=== PATIENT | male | born 1960 | race African-American/Black ===

== ENCOUNTER 2016-09-07 23:47 | Emergency (ER) | payer MEDICAID, OTHER ==
[~2016-09-07] VITALS: Ht 175.3 cm; Wt 78.9 kg
[~2016-09-07 23:47] MED LIST: IBUPROFEN600 MG ORAL; ROBAXIN-750750 MG PO
[2016-09-08] MEDS ORDERED: HYDROCODON-ACE1 EA15 ORAL (00:24)
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
[2016-09-08 00:30] VITALS: BP 159/99
[2016-09-08] MEDS ORDERED: Norco 5mg/325mg tab ORAL ONE (00:30)
[2016-09-09] MEDS ORDERED: ROBAXIN-750750 MG PO (13:55)
[2016-09-09] MEDS ORDERED: IBUPROFEN600 MG ORAL (13:55)
== END 2016-09-08 00:31 | disposition home or self-care (01) ==
LOC: EMR 09-08 00:11
DX: S09.8XXA Other specified injuries of head, initial encounter (principal); V03.99XA Pedestrian with other conveyance injured in collision with car, pick-up truck or van, unspecified whether traffic or nontraffic accident, initial encounter; Y92.414 Local residential or business street as the place of occurrence of the external cause; M54.9 Dorsalgia, unspecified
CPT/HCPCS: 99283

== ENCOUNTER 2016-09-09 12:08 | Emergency (ER) | payer OTHER ==
[~2016-09-09] VITALS: Ht 175.3 cm; Wt 79.8 kg
[~2016-09-09 12:08] MED LIST changes: +HYDROCODON-ACE1 EA15 ORAL
[2016-09-09] MEDS ORDERED: Ketorolac 30mg Inj IM ONE (12:30)
[2016-09-09] MEDS ORDERED: Methocarbamol 750mg tab ORAL ONE (12:30)
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
--- NOTE | 2016-09-09 13:03 | Diagnostic Imaging Report ---
Indication: Headache Technique: Contiguous 5 mm thick transaxial imaging of the head obtained in a Siemens Sensation [address] scanner. Soft tissue and bone windows generated. Total Dose length Product (DLP): [address] Dose Index Volume (CTDIvol): 70.38 mGy Comparison: none Findings: Mild, nonspecific, white matter hypoattenuation is noted throughout the brain consistent with chronic small vessel disease. There is no midline shift, edema, acute hemorrhage, mass effect, or abnormal extra-axial fluid collections. Bones and extra osseous soft tissues are unremarkable. Impression: No acute intracranial bleed, mass effect or edema. Nonspecific white matter hypoattenuation probably due to chronic small vessel disease. The CT scanner at [facility] is accredited by the [employer] and the scans are performed using dose optimization techniques as appropriate to a performed exam including Automatic Exposure control.
[2016-09-09 13:40] VITALS: BP 111/68
[2016-09-09] MEDS ORDERED: ROBAXIN-750750 MG PO (13:55)
[2016-09-09] MEDS ORDERED: IBUPROFEN600 MG ORAL (13:55)
[2016-09-09 14:03] VITALS: BP 111/68
== END 2016-09-09 14:06 | disposition home or self-care (01) ==
LOC: EMR 12:34
DX: S39.012A Strain of muscle, fascia and tendon of lower back, initial encounter (principal); S16.1XXA Strain of muscle, fascia and tendon at neck level, initial encounter; S00.03XA Contusion of scalp, initial encounter; V09.9XXA Pedestrian injured in unspecified transport accident, initial encounter; Y93.9 Activity, unspecified; Y99.9 Unspecified external cause status
CPT/HCPCS: 70450; 96372; 99284; J1885

== ENCOUNTER 2016-09-17 21:39 | Emergency (ER) | payer OTHER ==
[~2016-09-17] VITALS: Ht 175.3 cm; Wt 82.6 kg
[2016-09-17] MEDS ORDERED: ULTRAM50 MG ORAL (22:35)
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
[2016-09-17] MEDS ORDERED: Ketorolac 60mg Inj IM ONE (22:45)
[2016-09-17 22:46] VITALS: BP 144/85
== END 2016-09-17 22:58 | disposition home or self-care (01) ==
LOC: EMR 22:00
DX: F07.81 Postconcussional syndrome (principal); G44.309 Post-traumatic headache, unspecified, not intractable
CPT/HCPCS: 96372; 99283

== ENCOUNTER 2018-02-28 20:36 | Emergency (ER) | payer MEDICAID, OTHER ==
[~2018-02-28] VITALS: Ht 175.3 cm; Wt 80.7 kg
[~2018-02-28 20:36] MED LIST changes: +ULTRAM50 MG ORAL
[2018-02-28 20:55] VITALS: BP 125/83
[2018-02-28] MEDS ORDERED: Tranexamic Acid(Epistaxis Use) TOPIC ONE (21:00)
[2018-02-28] MEDS ORDERED: oxyCODONE HCL/Acetaminophen 5/325mg ORAL ONE (21:45)
[2018-02-28] MEDS ORDERED: PERCOCET 5-3251 EACH ORAL (21:49)
[2018-02-28 21:59] VITALS: BP 123/81
--- NOTE | 2018-03-01 13:46 | Emergency Room Report ---
History of Present Illness General Chief Complaint: Nosebleed Source: Patient Present Illness HPI Patient is a 57-year-old male who presented after increased nasal bleeding. Patient had recent sinus surgery at [facility]. The patient reportedly had a sinus resection. The patient had been having increased bleeding after surgery. He reported having increased pain. The patient stating bleeding at never stops and surgery which one day prior to arrival. The patient denies any lightheadedness or dizziness.Patient denies any other locations of bleeding.He denies prior liver disease or anticoagulant use. Allergies: Coded Allergies: No Known Allergies (Unverified , 03/30/16) Patient History Past Medical History: see triage record Reviewed Nursing Documentation: PMH: Agreed; PSxH: Agreed Nursing Documentation-PMH Past Medical History: No Stated History Review of Systems All Other Systems: negative except mentioned in HPI Physical Exam Vital Signs Date Time Temp Pulse Resp B/P (MAP) Pulse Ox O2 Delivery O2 Flow Rate FiO2 02/28/18 20:45 97.9 80 16 127/81 99 Room Air General Appearance: well appearing, no apparent distress, alert, GCS 15 Head: normocephalic, atraumatic ENT: normal voice, other - bilateral anterior nasal bleeding, bilateral packing material in nares Neck: full range of motion, supple Respiratory: no respiratory distress, speaking full sentences Musculoskeletal: no calf tenderness Neurologic: normal gait Psychiatric: mood/affect normal Skin: no rash Medical Decision Making Diagnostic Impression: Primary Impression: Epistaxis ER Course The patient presented for nosebleed. Differential diagnosis included was not limited to anemia, coagulopathy, postsurgical bleeding, among others. The patient appears to have mild postsurgical bleeding anteriorly. TXA was placed intranasally bilaterally with improvement in bleeding to the point the patient had minimal oozing from the left naris right nare completely stopped. The patient was discussed with patient's surgeon who agreed to see the patient on Friday. Patient is given prescription for pain medications. He is advised to return if he began having increased bleeding or lightheadedness.. Last Vital Signs Date Time Temp Pulse Resp B/P (MAP) Pulse Ox O2 Delivery O2 Flow Rate FiO2 02/28/18 21:59 97.9 78 16 123/81 99 Room Air 92 Status: improved Disposition: HOME, SELF-CARE Condition: Stable Scripts Oxycodone/Acetaminophen 5-325* (PERCOCET 5-325 MG TABLET*) 1 Each Tablet 1 TAB ORAL Q4H PRN for For Pain, #10 TAB 0 Refills Prov: Ronnie Castanon MD 02/28/18 Referrals: NON PHYSICIAN (PCP) Patient Instructions: Nosebleed, [id number] Ronnie Castanon MD Mar 01, 2018 13:46
== END 2018-02-28 21:59 | disposition home or self-care (01) ==
LOC: EMR 20:59
DX: R04.0 Epistaxis (principal)
CPT/HCPCS: 30901; 99283